=== PATIENT | male | born 1960 | race Two or more races ===

== ENCOUNTER 2024-11-01 11:31 | Emergency (ER) | payer OTHER, SELFPAY ==
--- NOTE | 2024-11-01 | ECG_ITS ---
Test Reason : chest pain Blood Pressure : */* mmHG Vent. Rate : 100 BPM Atrial Rate : 100 BPM P-R Int : 164 ms QRS Dur : 158 ms QT Int : 416 ms P-R-T Axes : 73 246 80 degrees QTcB Int : 536 ms Atrial-sensed ventricular-paced rhythm Biventricular pacemaker detected Abnormal ECG No previous ECGs available Referred By: Generic ED Physician Electronically Signed By: Hussein White
--- NOTE | ~2024-11-01 | XR_ITS ---
EXAMINATION: XR CHEST CLINICAL INFORMATION: cp COMPARISON: None available. TECHNIQUE: Frontal view of the chest was obtained. FINDINGS: The lungs are well-expanded and clear acute process. The heart size and pulmonary vascularity is normal. There are pacer electrodes in right atrium and right ventricle. There is mild spondylosis dorsal spine. No aggressive lytic or sclerotic process seen. XR/XR chest 1V IMPRESSION: No acute cardiopulmonary process seen.. Electronically signed by: Vignesh Cisneros MD 11/01/2024 01:33 PM EDT RP
--- NOTE | ~2024-11-01 | CT_ITS ---
EXAMINATION: CT ABDOMEN AND PELVIS WITHOUT CONTRAST CLINICAL INFORMATION: Nausea and vomiting. COMPARISON: June 22, 2011 is not available on PACS. TECHNIQUE: Multidetector volumetric imaging was performed from the superior aspect of the liver through the pubic symphysis. Sagittal and coronal reformatted images were obtained on the technologist's workstation. This CT examination was performed using dose optimization techniques as appropriate, variously including the following: *Automated exposure control *Adjustment of mA and/or kV according to patient size (this includes techniques or standardized protocols for targeted exams where dose is matched to indication/reason for exam; i.e. extremities or head) *Use of iterative reconstruction technique. DLP: 528 mGy centimeter. FINDINGS: Inadequate evaluation of the intra-abdominal organs and vascular structures due to lack of IV contrast. LUNG BASES: No acute airspace disease. Electrode leads in the right heart chambers and coronary venous sinus. LIVER, GALLBLADDER, AND BILIARY TREE: Liver measures 15 cm. No intrahepatic biliary ductal dilatation. No pericholecystic fluid collection or gallbladder wall thickening. No extrahepatic biliary ductal dilatation. PANCREAS: No peripancreatic fluid collection. No main pancreatic ductal dilatation. SPLEEN: 8 cm. ADRENAL GLANDS: No nodular lesions. KIDNEYS AND URETERS: No gross hydronephrosis or nephrolithiasis. Vascular calcifications in the left renal hilum. BLADDER: Fluid-filled. GASTROINTESTINAL TRACT: No intestinal obstruction pattern. Appendix is normal. No gross wall thickening. No pneumatosis intestinalis. Stool within the large intestine. No pneumoperitoneum. No ascites. ABDOMINAL WALL: Diastases abdominal rectus muscles. There is an irregular soft tissue fullness in the left inguinal canal probably related to prior surgical procedure.. LYMPH NODES: Nonspecific mildly prominent in the mesenteric and retroperitoneum. VASCULAR: Mixed plaques throughout the abdominal aorta wall and iliac arteries origin of the mesenteric arteries and main renal arteries. No gross aneurysm in the abdominal aorta.. Calcified plaques in the thoracic aorta. PELVIC VISCERA: Inadequate evaluation. No gross enlargement. OSSEOUS STRUCTURES: Syndesmophyte formation throughout the thoracic spine and upper lumbar spine. Facet joint hypertrophy at L4-5 and L5-S1. No gross malalignment. No acute cortical disruption. Syndesmophyte formation with the incomplete ankylosis at the sacroiliac joints. CT/CT abdomen pelvis wo IV con IMPRESSION: No intestinal obstruction pattern. No pneumoperitoneum. No ascites. Atherosclerosis disease. Multilevel thoracolumbar spondylosis. Fleischner guidelines were followed. Electronically signed by: David Benjamin MD 11/01/2024 03:07 PM EDT RP
[2024-11-01 11:43] VITALS: BP 160/100; BP 165/96; PULSE 80; PULSE 98; RESP 16; O2SAT 97; O2SAT 98; BMI 25.1
[2024-11-01 12:06] LABS: MANUAL DIFF FLAG NO
[2024-11-01 12:11] LABS: Basophils Percent Auto 0.3 % (0-2); Eosinophils Absolute Auto 0.1 X10*3/uL (0.0-0.4); Eosinophils Percent Auto 0.6 % (0-4); Hematocrit 46.8 % (42.0-52.0); Hemoglobin 15.9 g/dl (14.0-18.0); Imm Gran Abs Auto 0.04 X10*3/uL (0.00-0.03); Imm Gran Pct Auto 0.3 % (0.0-0.4); Lymphocytes Absolute Auto 1.4 X10*3/uL (1.2-4.9); Lymphocytes Percent Auto 12.1 % (20-40); Mean Corpuscular Hemoglobin 30.9 pg (27.0-33.0); Mean Corpuscular Volume 91.1 fL (80.0-98.0); Mean Platelet Volume 9.9 fL (9.4-12.4); Monocytes Percent Auto 8.1 % (2-11); Neutrophils Absolute Auto 9.2 x10*3/uL (2.0-8.3); Neutrophils Percent Auto 78.6 % (45-73); Platelet Count 183 X10*3/uL (160-400); Red Blood Count 5.14 X10*6/uL (4.60-5.80); White Blood Count 11.7 X10*3/uL (4.8-10.8)
[2024-11-01 12:25] LABS: Alanine Aminotransferase 14 U/L (0-40); Albumin Level 4.3 g/dL (3.5-5.0); Alkaline Phosphatase 61 U/L (39-117); Anion Gap 12 (12-20); Aspartate Amino Transferase 21 U/L (5-37); Bilirubin Total 1.1 mg/dL (0.0-1.0); Blood Urea Nitrogen 19 mg/dL (9-16); Calcium 9.4 mg/dL (8.4-10.2); Carbon Dioxide 26 mmol/L (22-29); Chloride 108 mmol/L (96-108); Creatinine Clr Calc Pharmacy 89.4; Estimated Glomerular Filt Rate > 60; Glucose Random 178 mg/dL (60-115); Sodium 142 mmol/L (135-145); Total Protein 7.6 g/dL (6.5-8.0)
[2024-11-01 12:27] LABS: Troponin-I High Sensitivity 8.7 ng/L (<3.5-35.0)
--- NOTE | 2024-11-01 12:51 | ED.CHESTPAIN ---
HPI - Chest Pain General Chief Complaint: Chest Pain Stated Complaint: CP,NAUSEA,VOMITING X1W,FROM WALK IN PER EMS Time Seen by Provider: 11/01/24 11:57 History of Present Illness HPI narrative: patient is a 64-year-old male presented today with having chest pain. Patient reports chest pain lasts for maybe 1-2 seconds usually with walking. There is no diaphoresis associated with the pain. Mild shortness of breath when he walks. Patient denies any fever chills no cough no congestion. Claims he is vaccinated. Has a history of congestive heart failure with a low EF about like 15-30%. Status post AICD placement. History of diabetes, hypertension, high cholesterol, ex-smoker previous history of polysubstance abuse. Related Data Allergies Allergy/AdvReac Type Severity Reaction Status Date / Time From Tuberculin PPD Meagan Test Allergy Unknown RASH, Uncoded 11/01/24 11:47 SWELLING OF ARM Review of Systems Review of Systems: positive chest pain Yes all other systems are reviewed and are negative PMFSH Past Medical History Attestation statement: The following information was validated with the patient. Social History Social History Smoked in Last 30 Days: Yes Use of substances other than those prescribed or required for medical reasons: No Advance Directives: No Advance Directives Information Provided: Yes Do you have a plan to hurt others: No Plan Physical Exam Vital Signs: Vital Signs: Last Vital Signs Temp 98.0 F 11/01/24 13:05 Pulse 100 11/01/24 13:05 Resp 17 11/01/24 13:05 BP 161/89 H 11/01/24 13:05 Pulse Ox 96 11/01/24 13:05 O2 Del Method Room Air 11/01/24 13:05 BMI result Body Mass Index 25.1 Appearance: Alert. Oriented X3. No acute distress. Eyes: Pupils equal, round and reactive to light. ENT: Pharynx normal. Neck: Normal inspection. Neck supple. No lymph nodes noted. No crepitus CVS: Normal heart rate and rhythm. Pulses normal. Normal S1 and S2 Respiratory: No respiratory distress. Breath sounds normal. No Wheezing. No rales Abdomen: Soft and nontender. No rigidity. No distention. good BS x4 Skin: Skin warm and dry. Normal skin color. Normal skin turgor. Extremities: No lower extremity edema. Neurovascular intact to all extremities. No Lacerations. No Rash Neuro: Oriented X 3. No motor deficit. No sensory deficit. Moving all extermities. No slurred speech Medical Decision Making Medical Decision Making [facility] Narrative: My interpretation patient's EKG showed a paced rhythm. Heart rate is about 100. Patient has chest pain that is atypical but has significant risk factors for CAD. Patient has a history of cardiomyopathy status post AICD multiple risk factors. Will get 2 sets of enzymes 1st set of troponin was negative. Will monitor carefully. In no acute distress. Patient's AICD is from [employer]. Will interrogate. Patient's defibrillator interrogated. I reviewed patient's [employer] report it was grossly negative. Patient chest pain lasts for 1-2 seconds. Two sets of troponins are negative. He is otherwise well. He had nonspecific nausea we did a CT scan of the abdomen per radiology's reading was grossly negative there is no obstruction no abscess no perforation. Will discharge patient home. Will refer patient to cardiology for outpatient further workup of his nonspecific chest pain given his multitude of risk factors. Currently in stable condition. Differential Diagnosis Differential Diagnoses: The differential diagnosis associated with the presentation includes Admission/Observation Consideration of admission/observation: Escalation of care including admission/observation considered Considered admission given patient's multitude of risk factor and having a pacemaker bed pain is so atypical felt patient unlikely to have ACS will discharge home Consult Healthcare Provider Management of the patient was discussed with: Assistant Plant Controller ( cardiology okay with following up patient on an outpatient basis) Lab Data [facility] Lab Attestation statement: I reviewed the patient's lab results. 11/01/24 12:00 11/01/24 12:00 Labs: Lab Results 11/01/24 11/01/24 Range/Units 12:00 13:18 WBC 11.7 H (4.8-10.8) X10*3/uL RBC 5.14 (4.60-5.80) X10*6/uL Hgb 15.9 (14.0-18.0) g/dl Hct 46.8 (42.0-52.0) % MCV 91.1 (80.0-98.0) fL MCH 30.9 (27.0-33.0) pg MCHC 34.0 (31.0-36.0) g/dl RDW 12.0 (11.0-16.0) % Plt Count 183 (160-400) X10*3/uL MPV 9.9 (9.4-12.4) fL Immature Gran % (Auto) 0.3 (0.0-0.4) % Neut % (Auto) 78.6 H (45-73) % Lymph % (Auto) 12.1 L (20-40) % [place] % (Auto) 8.1 (2-11) % Eos % (Auto) 0.6 (0-4) % Baso % (Auto) 0.3 (0-2) % Lymph # (Auto) 1.4 (1.2-4.9) X10*3/uL [place] # (Auto) 1.0 (0.1-1.2) X10*3/uL Eos # (Auto) 0.1 (0.0-0.4) X10*3/uL Baso # (Auto) 0.0 (0.0-0.2) X10*3/uL Abs Immat Gran (auto) 0.04 H (0.00-0.03) X10*3/uL Absolute Neuts (auto) 9.2 H (2.0-8.3) x10*3/uL Absolute Nucleated RBC 0.000 (0.0-0.012) X10*3/uL Nucleated RBC % (auto) 0.0 (0.0-0.2) /100WBC Sodium 142 (135-145) mmol/L Potassium 4.0 (3.3-5.1) mmol/L Chloride 108 (96-108) mmol/L Carbon Dioxide 26 (22-29) mmol/L Anion Gap 12 (12-20) BUN 19 H (9-16) mg/dL Creatinine 0.90 (0.5-1.4) mg/dL Estim Creat Clear Calc 89.4 Estimated GFR > 60 Random Glucose 178 H (60-115) mg/dL Calcium 9.4 (8.4-10.2) mg/dL Total Bilirubin 1.1 H (0.0-1.0) mg/dL AST 21 (5-37) U/L ALT 14 (0-40) U/L Alkaline Phosphatase 61 (39-117) U/L Troponin I High Sens 8.7 6.5 (<3.5-35.0) ng/L Total Protein 7.6 (6.5-8.0) g/dL Albumin 4.3 (3.5-5.0) g/dL Independent Interpretation I performed an independent interpretation of an: EKG (paced) Radiology Impression Discussion of test interpretation with radiology: I have reviewed the radiologist's reading. External Record Review External record reviewed: Outpatient record Chronic Conditions Patient?s care impacted by: Diabetes and Hypertension Discharge Plan Discharge Clinical Impression: Chest pain Patient Disposition: Home, Self-Care Instructions: Chest Pain (ED) Referrals: Hussein White MD [Physician] - 11/05/24 Print Language: Japanese
[2024-11-01 13:05] VITALS: BP 161/89; PULSE 100; RESP 17; TEMP 36.7; O2SAT 96
[2024-11-01 13:52] LABS: Troponin-I High Sensitivity 6.5 ng/L (<3.5-35.0)
--- OUTSIDE RECORDS SUMMARY | 2024-11-01 14:49 | XMS_ITS | Clinical Summary ---
Author Organization [employer] Address [address] [facility] [address] [place] [address] Care Team Providers Care Lpta Name Role Phone Unavailable Primary Care Provider Unavailabl e Encounters Date Type Department Care Team Description 11/01/2024 Telephone [facility] [address] [place] [address] Carlotta Baxter RN Nurse Triage 08/10/2024 Telephone [facility] [address] [place] [address] Trish Sewell ANP nail artist request from Last 3 Months Social History Tobacco Use Types Packs/Day Years Used Date Smoking Tobacco: Never Assessed Sex and Gender Information Value Date Recorded Sex Assigned at Male 05/24/2022 10:21 AM EDT Legal Sex Male 10:21 AM EDT Gender Identity Male 08/10/2024 9:17 AM EST Sexual Orientation Straight 08/10/2024 9: 17 AM EST Plan of Treatment Health Maintenance Due Date Last Done Comments CT Colonography 1961 Colonoscopy 1961 Colorectal Cancer Screening 1961 Depression Screening 1961 FIT DNA/Cologuard 1961 FIT 1961 FOBT 1961 HIV Screening 1961 Lipid Panel 1961 SDOH Screening 1961 Sigmoidoscopy 1961 Alcohol/Substance Use Screening 1973 Tobacco Screening 1973 Hepatitis C Screening 1979 DTaP/Tdap/Td Vaccines (1 - Tdap) 1980 Pneumococcal Vaccine: 50+ Ye ars (1 of 1 - PCV) 2011 Zoster Vaccines (1 of 2) 2011 COVID-19 Vaccine ( - 2023-2 5 season) 2024 Influenza Vaccine (#1) 2024 RSV Patients and Pa tients Aged 60 years or older (1 - 1-dose 75+ series) 2036 HIB Vaccines Aged Out No longer eligi ble based on patient's age to complete this topic HPV Vaccines Aged Out No longer eligi ble based on patient's age to complete this topic Hepatitis A Vaccines Aged Out No long er eligible based on patient's age to complete this topic Hepatitis B Vaccines Aged Out No long er eligible based on patient's age to complete this topic IPV Vaccines Aged Out No longer eligi ble based on patient's age to complete this topic Meningococcal Vaccine Aged Out No kimber magda eligible based on patient's age to complete this topic RSV under 20 months Aged Out No longe r eligible based on patient's age to complete this topic Rotavirus Vaccines Aged Out No longer eligible based on patient's age to complete this topic Insurance < 65 [place] [id number]
--- OUTSIDE RECORDS SUMMARY | 2024-11-01 14:49 | XMS_ITS | Continuity of Care Document ---
Author Organization [facility] Address [address] [place] [address] Phone Care Team Providers Care Spray Pilot Name Role Phone Kat Davis MD Unavailable Unavailabl e Allergies, Adverse Reactions, Alerts Substance Reaction Status Criticality No Known allergies Medications Medication Instructions Dosage Effective Dates (start - stop) Status Comments Soma 350 mg Tab Take 1 tablet by reyna th 3 times daily. - Active Celexa 20 mg Tab Take 1 tablet by reyna th daily in the morning - Active ibuprofen 800 mg Tab Take 1 tablet by mo uth 3 times daily with food. - Active Procedures Procedure Date Office/outpatient visit,est, [...] Diagnoses Date Provider Office/outpat ient visit,est, mod [facility], [address] [place] [address], [address], tel:[phone] [place] [facility] abd pain (chief complaint) HEPATITIS C CARRIERHEPATITIS C CARRIERABDMNAL PAIN RT UPR QUADBACKACHE NOS Collins- 1-[address] 7 Ryan Stephens. [address], [id number] [address] [place] [address], [address], [place]. tel:[phone] [facility], [address] [facility], [place], [address], [place] tel:[phone] 700 [facility] Gerard B body ache (chief complaint)a bdominal discomfort (chief complaint) Smoker, Current,COCAINE DEPEND-REMISSCANNABIS DEPEND-CONTINDEPRESSIV E DISORDER NECNECK PAIN - CERVICALGIANECK PAIN - CERVICALGIADEPRESSIVE DISORDER NECABDMNAL PAIN RT LWR QUAD 7 [address]anes[address] Kat. [address], [id number] [address] [place] [address], [address], [place]. tel:[phone] Family History Family Member Type Diagnosis Age At Onset Mother Problem (finding) Heart disease (Cause Of ) Father Problem (finding) Alive and well Mother Problem (finding) Payers Payer name Insurance type Covered libertarian ID Authoriza tion(s) No Information Social History Type Description Quantity Date Captured Comments Alcohol Use Details beer & liquor Caffeine Use Details Coffee 1 cup per day Tobacco Use Status Smoking Status No Information Sex Male Vital Signs Date / Time: Height Weight BMI Pulse Rate Blood Pressure Temperature Respiratory Rate Body Surface Area Head Circumference Head Circ. Percentile Wt./Jasiel. Percentile BMI percentile Pulse Ox Inhaled Ox [...]
--- OUTSIDE RECORDS SUMMARY | 2024-11-01 14:49 | XMS_ITS | Encounter Summary ---
Author Organization [employer] Address [address] [facility] [address] [place] [address] Care Team Providers Care Sports Health [employer] Membership Advisors Name Role Phone Unavailable Primary Care Provider Unavailabl e Reason for Visit * Reason Onset Date Comments Nurse Triage 11/01/2024 Encounter Details Date Type Department Care Team (Late st Contact Info) Description 11/01/2024 Telephone [facility] [address] [place] [address] Carlotta Baxter RN Nurse Triage Social History Tobacco Use Types Packs/Day Years Used Date Smoking Tobacco: Never Assessed Sex and Gender Information Value Date Recorded Sex Assigned at Male 05/24/2022 10:21 AM EDT Legal Sex Male 10:21 AM EDT Gender Identity Male 08/10/2024 9:17 AM EST Sexual Orientation Straight 08/10/2024 9: 17 AM EST documented as of this encounter Miscellaneous Notes * Telephone Encounter - Carlotta Baxter RN - 11/01/2024 11:21 AM EDT Patient presented to [facility] [place] reporting N/V, chest pain, and palpitations. He reports N/V x 1 week. Chest pain/ palpitations new this morning. Not a patient of [facility], however, requesting to be added to new patient list. New to area. EMS called for ambulance for patient to be transported to hospital. Patient brought back to triage room. Patient actively dry heaving and holding chest. This RN asked patient if he has a cardiac PMH. He reports he has a pacemaker and something else is he is unsure of. Confirms he is also diabetic. He has not eaten yet today d/t N/V. SpO2 95 % on room air, HR 102, BP 152/87, RR 20 EMS arrival at 11:10 AM. Patient to be transported to either [facility] or [facility] pending ambulance telemetry. documented in this encounter Plan of Treatment Not on file documented as of this encounter Visit Diagnoses Not on filedocumented in this encounter
== END 2024-11-01 17:44 | disposition home or self-care (01) ==
PROVIDERS: Emergency Provider Emergency Medicine Emergency Medical Services; PCP Internal Medicine
DX: R07.89 Other chest pain (principal); R06.02 Shortness of breath; R11.2 Nausea with vomiting, unspecified; R10.2 Pelvic and perineal pain; Z95.810 Presence of automatic (implantable) cardiac defibrillator
CPT/HCPCS: 36415; 71045; 74176; 80053; 84484; 85025; 93005; 99284

== ENCOUNTER → 2024-11-01 11:51 | Outpatient (BNV) | payer OTHER, SELFPAY | PROVIDERS: Emergency Provider Emergency Medicine Emergency Medical Services; PCP Internal Medicine; Visit Provider Internal Medicine Cardiovascular Disease | DX: R94.31 Abnormal electrocardiogram [ECG] [EKG] (principal); Z95.0 Presence of cardiac pacemaker | CPT/HCPCS: 93010 ==

== ENCOUNTER → 2024-11-01 13:16 | Outpatient (BNV) | payer OTHER, SELFPAY | PROVIDERS: Emergency Provider Emergency Medicine Emergency Medical Services; PCP Internal Medicine; Visit Provider Radiology Diagnostic Radiology | DX: R07.9 Chest pain, unspecified (principal); R11.2 Nausea with vomiting, unspecified | CPT/HCPCS: 71045; 74176 ==

== ENCOUNTER 2024-12-07 10:21 | Outpatient (REF) | payer OTHER, SELFPAY ==
--- OUTSIDE RECORDS SUMMARY | 2024-12-07 10:41 | XMS_ITS | Clinical Summary ---
Author Organization [employer] Address [address] [facility] 7t [place] [address] Care Team Providers Care Annual Giving Officer Name Role Phone Eboni Posey MD Primary Care Provider [phone] Allergies Active Allergy Reactions Criticality Noted Date Comments Tuberculin, Ppd 12/07/2024 Medications Aspirin Low Dose 81 MG EC tablet TAKE 1 TABLET BY MOUTH DAILY DO NOT CRUSH OR CHEW 10/16/2024 Active atorvastatin (Lipitor) 80 MG tablet Take 1 tablet by mouth. 06/24/2023 Active carvedilol (Coreg) 25 MG tablet Take 25 mg by mouth. 09/19/2024 Active Jardiance 25 MG Take 1 tablet by mouth. 09/19/2024 Active Entresto 97-103 MG tablet TOME 1 TABLETA POR V A ORAL DOS VECES AL D A Active Rybelsus 7 MG tablet Take 1 tablet by mouth Once per day. 07/04/2024 Active spironolactone (Aldactone) 25 MG tablet Take 1 tablet by mouth Once per day. 09/19/2024 Active Active Problems Problem Noted Date Diagnosed Date Chronic right-sided HF (heart failure) Constipation 12/07/2024 Diarrhea 12/07/2024 History of kidney stones 12/07/2024 History of viral infection 12/07/2024 Hx of smoking 12/07/2024 Hypertension 12/07/2024 Left bundle branch block (LBBB) 12/07/2024 Nonischemic cardiomyopathy 12/07/2024 Paranoid delusion 12/07/2024 Sinus tachycardia 12/07/2024 Type 2 diabetes mellitus wit hout complication, without long-term current use of insulin 12/07/2024 Encounters Date Type Department Care Team Description 12/07/2024 9:00 AM EDT Office Visit [facility] [address] [place] [phone] Eboni Posey MD Type 2 diabetes mellitus without complication, without long-term current use of insulin ([facility]) (Primary Dx); Dietary counseling; Exercise counseling; Overweight; Screening for prostate cancer; Nonischemic cardiomyopathy (CMS/HCC); Chronic right-sided HF (heart failure) (CMS/HCC); Screen for colon cancer; Deep vein thrombosis (DVT) of left upper extremity, unspecified chronicity, unspecified vein (CMS/HCC) 12/07/2024 Travel 12/06/2024 Telephone [facility] [address] [place] [phone] Eboni Posey MD chart prep 11/29/2024 Patient Outreach [address] [address] Eboni Posey MD Pre-visit Planning ((Unable to reach for PVP screening, LVM)) 11/01/2024 Telephone [facility] [address] [place] [phone] Carlotta Baxter RN Nurse Triage from Last 3 Months Immunizations Immunization Administration Dates Next Due Influenza, IIV3, injectable 05/08/2023,0 04/20/2021,04/18/2018,07/08,04/19/2013,04/03/2012 Influenza, seasonal, injecta ble, preservative free 08/28/2024 Pfizer Covid-19 Vaccine 12+ Bivalent 04/09/2022 Pneumococcal Conjugate PCV 20 05/08/2023 Pneumococcal Polysaccharide PPSV23 07/08/2017 RSV Bivalent 08/28/2024 Smallpox Mpox, Live Attenuat ed, Preservative Free 07/09/2022,06/11/2022 Tdap 10/28/2011 Zoster, Recombinant 01/01/2022,11/03/2021 Social History Tobacco Use Types Packs/Day Years Used Date Smoking Tobacco: Never Smokeless Tobacco: Never Tobacco Cessation:Counseling Given: Not Answered Depression Answer Date Recorded Patient Health Questionnaire-9 Score 8 12/07/2024 Patient Health Questionnaire-9 Score 8 12/07/2024 Last PHQ-9: Questionnaire Data Not on file 0 12/07/2024 Housing Stability Answer Date Recorded What is your housing situation today? I have joanie cavazos 12/07/[address] you li ve. Do you have problems with any of the following? None of the above 12/07/2024 Food Insecurity Answer Date Recorded Within the past 12 months, y ou worried that your food would run out before you got money to buy more: Never True 12/07/2024 Within the past 12 months,th e food you bought just didn't last and you didn't have enough money to get more: Never True Transportation Answer Date Recorded In the past 12 months, has l ack of transportation kept you from medical appts, meetings, work or from getting things needed for daily living? No 12/07/2024 Utilities Answer Date Recorded In the past 12 months, has t he electric, gas, oil or water company threatened to shut off services in your home? No 12/07/2024 Depression Answer Date Recorded Patient Health Questionnaire-2 Score 2 12/07/2024 Internet Access Answer Date Recorded Internet Access Q1 Yes 12/07/2024 Internet Access Q2 Not on file 12/07/2024 Sex and Gender Information Value Date Recorded Sex Assigned at Male 05/24/2022 10:21 AM EDT Legal Sex Male 10:21 AM EDT Gender Identity Male 08/10/2024 9:17 AM EST Sexual Orientation Straight 08/10/2024 9: 17 AM EST Last Filed Vital Signs Vital Sign Reading Time Taken Comments Blood Pressure 108/72 12/07/2024 8:51 AM EDT Pulse 101 12/07/2024 8:51 AM EDT Temperature 36.3 ??C (97.4 ??F) 12/07/2024 8:51 AM ED T Respiratory Rate 20 12/07/2024 8:51 AM EDT Oxygen Saturation 97% 12/07/2024 8:51 AM EDT Inhaled Oxygen Concentration - - Weight 85.9 kg (189 lb 6.4 oz) 12/07/2024 8:51 A M EDT Height 180.3 cm (5' 11 ) 12/07/2024 8:51 AM EDT Body Mass Index 26.42 12/07/2024 8:51 AM EDT Plan of Treatment Health Maintenance Due Date Last Done Comments CT Colonography 1961 Colonoscopy 1961 Colorectal Cancer Screening 1961 Diabetes: Hemoglobin A1C 1961 FIT DNA/Cologuard 1961 FIT 1961 FOBT 1961 HIV Screening 1961 Lipid Panel 1961 Sigmoidoscopy 1961 Diabetes: Foot Exam 1971 Eye Exam 1971 Hepatitis C Screening 1979 Diabetes: Urine Protein Screening 1980 DTaP/Tdap/Td Vaccines (2 - Td or Tdap) 10/27/2021 10/28/2011 COVID-19 Vaccine ( season) 2024 05/08/2023, 04/09/2022, 11/02/2021, Additional history exists Alcohol/Substance Use Screening 12/07/2025 12/07/2024 Depression Screening 12/07/2025 12/07/2024, 12/08/19 SDOH Screening 12/07/2025 12/07/2024 Tobacco Screening 12/07/2025 12/07/2024 Zoster Vaccines Completed 01/01/2022, 11/03/2021 Pneumococcal Vaccine: 50+ Years Completed 05/08/2023, 07/08/2017 Influenza Vaccine Completed 08/28/2024, , 04/20/2021, Additional history exists RSV Patients and Patients Aged 60 years or older Completed 08/28/2024 HIB Vaccines Aged Out No longer eligi [...] patient's age to complete this topic Meningococcal B Vaccine Aged Out No l onger eligible based on patient's age to complete this topic Meningococcal Vaccine Aged Out No kimber magda eligible based on patient's age to complete this topic RSV under 20 months Aged Out No longe r eligible based on patient's age to complete this topic Rotavirus Vaccines Aged Out No longer eligible based on patient's age to complete this topic Insurance [employer]ARE < 65 [place] [id number] Care Teams Annual Giving Officer Relationship Specialty Start Date End Date Eboni Posey MD [address] [place] [phone] PCP - General Family Medicine 12/07/24
--- OUTSIDE RECORDS SUMMARY | 2024-12-07 10:41 | XMS_ITS | Continuity of Care Document ---
Author Organization [facility] Address [address] [place] [address] Phone Care Team Providers Care Hat And Cap Opener Name Role Phone Kat Davis MD Unavailable [...] Diagnoses Date Provider Office/outpat ient visit,est, mod [facility], [address] [place] [address], [id number], tel:[phone] [place] [facility] abd pain (chief complaint) HEPATITIS C CARRIERHEPATITIS C CARRIERABDMNAL PAIN RT UPR QUADBACKACHE NOS Collins- 1-200 [address] Ryan Stephens. [address], [id number] [address] [place] [address], [address], [place]. tel:[phone] [facility], [address] [facility], [place], [address], [place] tel:[phone] [facility] Gerard B body ache (chief complaint)a bdominal discomfort (chief complaint) Smoker, Current,COCAINE DEPEND-REMISSCANNABIS DEPEND-CONTINDEPRESSIV E DISORDER NECNECK PAIN - CERVICALGIANECK PAIN - CERVICALGIADEPRESSIVE DISORDER NECABDMNAL PAIN RT LWR QUAD [address] Kat. [address], [id number] [address] [place] [address], [address], [place]. tel:[phone] Family History Family Member Type Diagnosis Age At Onset Mother Problem (finding) Heart disease (Cause Of ) Father Problem (finding) Alive and well Mother Problem (finding) Payers Payer name Insurance type Covered democrat ID Authoriza tion(s) No Information Social History [...] Information Instructions Date Instruction Additional Infor mation Prescribe medications Related to HEPATITIS C CARRIER Order labs/studies Related to HE PATITIS C CARRIER Order consults Related to NECK PAIN - CERVICALGIA Prescribe medications Related to NECK PAIN - CERVICALGIA Order labs/studies Related to NE CK PAIN - CERVICALGIA Assessments Type Assessment Date No Information
--- OUTSIDE RECORDS SUMMARY | 2024-12-07 10:41 | XMS_ITS | Encounter Summary ---
Author Organization [employer] Address [address] [facility] 7t [place] [address] Care Team Providers Care Lapper Name Role Phone Eboni Posey MD Primary Care Provider [phone] Reason for Referral * Consultation (Routine) - Pending Review Specialty Diagnoses / Procedures Referred By Wallace villarreal Referred To Contact Vascular Surgery Diagnoses Deep vein thrombosis (DVT) of left upper extremity, unspecified chronicity, unspecified vein (CMS/HCC) Eboni Posey MD [address] [place] [address] Phone: tel: fax: [address] Phone: tel: fax: Referral ID Status Reason Start Date Expiration Date Visits Requested Visits Authorized [id number] Pending Review Specialty Services Required 12/07/2024 12/07/2025 1 1 * Consultation (Routine) - Pending Review Specialty Diagnoses / Procedures Referred By Wallace villarreal Referred To Contact Gastroenterology Diagnoses Screen for colon cancer Eboni Posey MD [address] [place] [address] Phone: tel: fax: Referral ID Status Reason Start Date Expiration Date Visits Requested Visits Authorized [id number] Pending Review Specialty Services Required 12/07/2024 12/07/2025 1 1 * Consultation (Routine) - Pending Review Specialty Diagnoses / Procedures Referred By Wallace t Referred To Contact Cardiology Diagnoses Nonischemic cardiomyopathy (CMS/HCC) Chronic right-sided HF (heart failure) (CMS/HCC) Eboni Posey MD [address] [place] [address] Phone: tel: fax: [address] Phone: tel: fax: Referral ID Status Reason Start Date Expiration Date Visits Requested Visits Authorized [id number] Pending Review Specialty Services Required 12/07/2024 12/07/2025 1 1 Reason for Visit * Reason Comments Establish Care Encounter Details Date Type Department Care Team (Latest Contact Info) Description 12/07/2024 9:00 AM EDT Office Visit [facility] [address] [place] [address] Eboni Posey MD [address] [place] [address] Type 2 diabetes mellitus without complication, without long-term current use of insulin (CMS/HCC) (Primary Dx); Dietary counseling; Exercise counseling; Overweight; Screening for prostate cancer; Nonischemic cardiomyopathy (CMS/HCC); Chronic right-sided HF (heart failure) (CMS/HCC); Screen for colon cancer; Deep vein thrombosis (DVT) of left upper extremity, unspecified chronicity, unspecified vein (CMS/HCC) Social History Tobacco Use Types Packs/Day Years [...] AM EST documented as of this encounter Last Filed Vital Signs Vital Sign Reading [...] Mass Index 26.42 12/07/2024 8:51 AM EDT documented in this encounter Functional Status * Over the past 2 weeks, how often have you been bothered by any of the following problems? Question Answer Date of Assessment Author Patient Health Questionnaire-2 Score 2 12/07/2024 8:59 AM EDT Rosa Maria Royal MA * Little interest or pleasure in doing things Answer Date of Assessment Author Several days 12/07/2024 8:59 AM Rosa Maria Alamo MA * Feeling down, depressed, or hopeless Answer Date of Assessment Author Several days 12/07/2024 8:59 AM Rosa Maria Alamo MA * Trouble falling or staying asleep, or sleeping too much Answer Date of Assessment Author Several days 12/07/2024 8:59 AM Rosa Maria Alamo MA * Feeling tired or having little energy Answer Date of Assessment Author Several days 12/07/2024 8:59 AM EDT Rosa Maria Boyle MA * Poor appetite or overeating Answer Date of Assessment Author Several days 12/07/2024 8:59 AM Rosa Maria Alamo MA * Feeling bad about yourself - or that you are a failure or have let yourself or your family down Answer Date of Assessment Author Several days 12/07/2024 8:59 AM Rosa Maria Alamo MA * Trouble concentrating on things, such as reading the newspaper or watching television Answer Date of Assessment Author Several days 12/07/2024 8:59 AM Rosa Maria Alamo MA * Moving or speaking so slowly that other people could have noticed? Or the opposite - being so fidgety or restless that you have been moving around a lot more than usual. Answer Date of Assessment Author Several days 12/07/2024 8:59 AM Rosa Maria Alamo MA * Thoughts that you would be better off or hurting yourself in some way Answer Date of Assessment Author Not at all 12/07/2024 8:59 AM Rosa Maria Alamo MA * Patient Health Questionnaire-9 Score Answer Date of Assessment Author 8 12/07/2024 8:59 AM Rosa Maria Alamo MA * How difficult have these problems made it for you to do your work, take care of things at home, or get along with other people? Answer Date of Assessment Author Somewhat difficult 12/07/2024 8:59 AM DEBORAHT Rosa Maria Lion MA documented as of this encounter Progress Notes * Eboni Posey MD - 12/07/2024 9:00 AM EDT Subjective: Tulio Bergman is a 64 y.o. male who presents to the office for a transfer patient visit. Previous PCP [facility]. Interim history: Moved here recently Cardiology and vascular and GI Getting to appointments and shopping, needs help Current concerns: Getting medications refilled and moved to [facility] Having Problem List[1] Chronic right-sided HF (heart failure) (CMS/HCC) Constipation Diarrhea History of kidney stones History of viral infection Hx of smoking Hypertension Left bundle branch block (LBBB) Nonischemic cardiomyopathy (CMS/HCC) Paranoid delusion (CMS/HCC) Sinus tachycardia Type 2 diabetes mellitus without complication, without long-term current use of insulin (CMS/HCC) Surgical History[2] Family History[3] Social History Living situation: lives alone in one room 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 Respiratory: Negative. Cardiovascular: Negative. Gastrointestinal: Negative. Musculoskeletal: Negative. Skin: Negative. Visit Vitals BP 108/72 (BP Location: Left arm, Patient Position: Sitting, BP Cuff Size: Adult) Pulse 101 Temp 97.4 ??F (36.3 ??C) (Temporal) Resp 20 Ht 5' 11 (1.803 m) Wt 189 lb 6.4 oz (85.9 kg) SpO2 97% BMI 26.42 kg/m?? Smoking Status Never BSA 2.07 m?? Physical Exam Vitals and nursing note reviewed. Constitutional: Appearance: Normal appearance. He is normal weight. HENT: Head: Normocephalic and atraumatic. Cardiovascular: Rate and Rhythm: Normal rate and regular rhythm. Pulses: Normal pulses. Heart sounds: Normal heart sounds. Comments: Pacemaker in place, no tenderness around, L upper chest Does remote monitoring Pulmonary: Effort: Pulmonary effort is normal. Breath sounds: Normal breath sounds. Musculoskeletal: General: Normal range of motion. Cervical back: Normal range of motion and neck supple. Skin: General: Skin is warm and dry. Capillary Refill: Capillary refill takes less than 2 seconds. Neurological: General: No focal deficit present. Mental Status: He is alert and oriented to person, place, and time. Psychiatric: Mood and Affect: Mood normal. Behavior: Behavior normal. Problem List Items Addressed This Visit Chronic right-sided HF (heart failure) (CMS/HCC) Relevant Medications Aspirin Low Dose 81 MG EC tablet atorvastatin (Lipitor) 80 MG tablet carvedilol (Coreg) 25 MG tablet Jardiance 25 MG Entresto 97-103 MG tablet spironolactone (Aldactone) 25 MG tablet Other Relevant Orders Referral to Cardiology Nonischemic cardiomyopathy (CMS/HCC) Relevant Medications Aspirin Low Dose 81 MG EC tablet atorvastatin (Lipitor) 80 MG tablet carvedilol (Coreg) 25 MG tablet Jardiance 25 MG Entresto 97-103 MG tablet spironolactone (Aldactone) 25 MG tablet Other Relevant Orders Referral to Cardiology Type 2 diabetes mellitus without complication, without long-term current use of insulin (CMS/HCC) -Primary Relevant Medications atorvastatin (Lipitor) 80 MG tablet Jardiance 25 MG Entresto 97-103 MG tablet Rybelsus 7 MG tablet Other Relevant Orders Lipid Panel, Standard Hemoglobin A1c Albumin, Random Urine W/Creatinine Comprehensive Metabolic Panel Other Visit Diagnoses Dietary counseling Relevant Medications atorvastatin (Lipitor) 80 MG tablet Jardiance 25 MG Rybelsus 7 MG tablet Exercise counseling Relevant Medications atorvastatin (Lipitor) 80 MG tablet Jardiance 25 MG Rybelsus 7 MG tablet Overweight Relevant Medications atorvastatin (Lipitor) 80 MG tablet Jardiance 25 MG Rybelsus 7 MG tablet Other Relevant Orders Hepatitis C Antibody with Reflex to HCV, RNA, Quantitative, Real-Time PCR HIV-1/2 Antigen and Antibodies, Fourth Generation, with Reflexes Screening for prostate cancer Relevant Orders PSA,Total Screen for colon cancer Relevant Orders Referral to Gastroenterology Deep vein thrombosis (DVT) of left upper extremity, unspecified chronicity, unspecified vein (CMS/HCC) Relevant Medications Aspirin Low Dose 81 MG EC tablet Other Relevant Orders Referral to Vascular Surgery Routine Health Maintenance Optometry: has eye appointment January 08, 20[facility] at [facility] Dental: established with dental home No ASCVD risk: 64 y.o. male diabetic Lab Review: no lab studies available for review at time of visit COVID vaccination status: Outstanding IZ: (PCV20 - 19-65 with immunocompromising condition, tobacco use, diabetes, or >65 y/o) Shingrix (50 and over, 2 dose series, 2-6 months apart) Tdap: one dose after 19 y/o, then Td or Tdap booster every 10 years. Routine Cancer Screening Colon CA: routine screening starting at 45-75 years old per ACS -Colonoscopy every 10 years -CT colonography or flex sig every 5 years -Stool DNA test/Cologuard every 3 years -FIT annually Lung CA: Age 50-80 with 20-year pack history send for low-dose CT per USPSTF (order AAA screening with abd ultrasound x 1 in men aged 65-75 y/o who have ever smoked) PSA: shared decision making for routine screening starting at 50 y/o (40-45y/o w/ risk factors) Current Medications[5] ASA 81mg daily by mouth atorvastatin (Lipitor) 80 MG tablet Take 1 tablet by mouth. carvedilol (Coreg) 25 MG tablet Take 25 mg by mouth. Jardiance 25 MG Take 1 tablet by mouth. Rybelsus 7 MG tablet Take 1 tablet by mouth Once per day. spironolactone (Aldactone) 25 MG tablet Take 1 tablet by mouth Once per day. Entresto 97-103 MG tablet TOME 1 TABLETA POR V A ORAL DOS VECES AL D A Immunization History Administered Date(s) Administered Influenza, IIV3, injectable 04/03/2012, 04/19/2013, 07/08/2017, 04/18/2018, 04/20/2021, 05/08/2023 Influenza, seasonal, injectable, preservative free 08/28/2024 Pfizer Covid-19 Vaccine 12+ 11/05/2020, 11/26/2020, 04/08/2021, 05/08/2023 Pfizer Covid-19 Vaccine 12+ Bivalent 04/09/2022 Pfizer Covid-19 Vaccine 12+ andres-sucrose (Kim Cap) 11/02/2021 Pneumococcal Conjugate PCV 20 05/08/2023 Pneumococcal Polysaccharide PPSV23 07/08/2017 RSV Bivalent 08/28/2024 Smallpox Mpox, Live Attenuated, Preservative Free 06/11/2022, 07/09/2022 Tdap 10/28/2011 Zoster, Recombinant 11/03/2021, 01/01/2022 [1] Patient Active Problem List Diagnosis Chronic right-sided HF (heart failure) (CMS/HCC) Constipation Diarrhea History of kidney stones History of viral infection Hx of smoking Hypertension Left bundle branch block (LBBB) Nonischemic cardiomyopathy (CMS/HCC) Paranoid delusion (CMS/HCC) Sinus tachycardia Type 2 diabetes mellitus without complication, without long-term current use of insulin (CMS/HCC) [2] History reviewed. No pertinent surgical history. [3] No family history on file. [4] Allergies Allergen Reactions Tuberculin, Ppd [5] Current Outpatient Medications Medication Sig Dispense Refill Aspirin Low Dose 81 MG EC tablet TAKE 1 TABLET BY MOUTH DAILY DO NOT CRUSH OR CHEW atorvastatin (Lipitor) 80 MG tablet Take 1 tablet by mouth. carvedilol (Coreg) 25 MG tablet Take 25 mg by mouth. Jardiance 25 MG Take 1 tablet by mouth. Rybelsus 7 MG tablet Take 1 tablet by mouth Once per day. spironolactone (Aldactone) 25 MG tablet Take 1 tablet by mouth Once per day. Entresto 97-103 MG tablet TOME 1 TABLETA POR V A ORAL DOS VECES AL D A No current facility-administered medications for this visit. documented in this encounter Plan of Treatment Scheduled Orders Name Type Priority Associated Diagnoses Orde r Schedule Lipid Panel, Standard Lab Routine Type 2 diabetes mellitus without complication, without long-term current use of insulin ([facility]) Expected: 12/07/2024 (Approximate), Expires: 12/07/2025 Hemoglobin A1c Lab Routine Type 2 diabetes mellitus without complication, without long-term current use of insulin ([facility]/HCC) Expected: 12/07/2024 (Approximate), Expires: 12/07/2025 Albumin, Random Urine W/Creatinine Lab Routine Type 2 diabetes mellitus without complication, without long-term current use of insulin (CMS/HCC) Expected: 12/07/2024 (Approximate), Expires: 12/07/2025 Comprehensive Metabolic Panel Lab Routine Type 2 diabetes mellitus without complication, without long-term current use of insulin ([facility]/HCC) Expected: 12/07/2024 (Approximate), Expires: 12/07/2025 Hepatitis C Antibody with Reflex to HCV, RNA, Quantitative, Real-Time PCR Lab Routine Overweight Expected: 12/07/2024, Expires: 12/07/2025 HIV-1/2 Antigen and Antibodies, Fourth Generation, with Reflexes Lab Routine Overweight Expected: 12/07/2024 (Approximate), Expires: 12/07/2025 PSA,Total Lab Routine Screening for prostate cancer Expected: 12/07/2024, Expires: 12/07/2025 Scheduled Referrals Name Type Priority Associated Diagnoses Orde r Schedule Referral to Cardiology Outpatient Referral Routine Nonischemic cardiomyopathy (CMS/HCC) Chronic right-sided HF (heart failure) (CMS/HCC) Expected: 12/07/2024 (Approximate), Expires: 12/07/2025 Referral to Gastroenterology Outpatient Referral Routine Screen for colon cancer Expected: 12/07/2024 (Approximate), Expires: 12/07/2025 Referral to Vascular Surgery Outpatient Referral Routine Deep vein thrombosis (DVT) of left upper extremity, unspecified chronicity, unspecified vein (CMS/HCC) Expected: 12/07/2024 (Approximate), Expires: 12/07/2025 documented as of this encounter Visit Diagnoses Diagnosis Type 2 diabetes mellitus without complication, without long-term current use of insulin (CMS/HCC)- Primary Dietary counseling Dietary surveillance and counseling Exercise counseling Overweight Screening for prostate cancer Special screening for malignant neoplasm of prostate Nonischemic cardiomyopathy (CMS/HCC) Other primary cardiomyopathies Chronic right-sided HF (heart failure) (CMS/HCC) Congestive heart failure, unspecified Screen for colon cancer Special screening for malignant neoplasms, colon Deep vein thrombosis (DVT) of left upper extremity, unspecified chronicity, unspecified vein (CMS/HCC) documented in this encounter Additional Health Concerns Assessment Noted Time PHQ-9 Depression Total Score: 8 12/08/19 25 8:59 AM EDT documented as of this encounter Care Teams Lapper Relationship Specialty Start Date End Date Eboni Posey MD [address] [place] [id number] PCP - General Family Medicine 12/07/24 documented as of this encounter
--- OUTSIDE RECORDS SUMMARY | 2024-12-07 10:41 | XMS_ITS | Encounter Summary ---
Author Organization [employer] Address [address] [facility] 7t [place] [address] Care Team Providers Care Facility Examiner Name Role Phone Unavailable Primary Care Provider Unavailabl e Reason for Visit * Reason Onset Date Comments chart prep 12/06/2024 Encounter Details Date Type Department Care Team ([facility] st Contact Info) Description 12/06/2024 Telephone [facility] MEDICINE [address] [place], [place] [phone] Eboni Posey MD [address] [place], [place] [phone] chart prep Social History Tobacco Use Types Packs/Day Years Used Date Smoking Tobacco: Never Assessed Depression Answer Date Recorded Patient Health Questionnaire-9 [...] encounter Miscellaneous Notes * Telephone Encounter - Rosa Maria Royal MA - 12/06/2024 1:28 PM EDT Chart Prep Labs: not applicable Images: not applicable Referrals: not applicable Vaccines due: Covid, Flu, and Tdap Screenings: colonoscopy Overdue care gaps: SBIRT, SDOH, PHQ-9, KARLOS-7, Disability screen, and Tobacco documented in this encounter Plan of Treatment Not on file documented as of this encounter Visit Diagnoses Not on filedocumented in this encounter
--- OUTSIDE RECORDS SUMMARY | 2024-12-07 10:41 | XMS_ITS | Encounter Summary ---
Author Organization [employer] Address [address] [facility] 7[address] [place] [address] Care Team Providers Care Life Insurance Underwriter Name Role Phone Eboni Posey MD Primary Care Provider [phone] Encounter Details Date Type Department Care Team (Latest Contact Info) Description 12/07/2024 Travel Social History Tobacco Use Types Packs/Day Years Used Date Smoking Tobacco: Never Smokeless Tobacco: Never Depression Answer Date Recorded Patient Health Questionnaire-9 [...] AM EST documented as of this encounter Functional Status * Over the [...] AM EDT Rosa Maria Boyle MA * Feeling down, depressed, or hopeless Answer Date of Assessment Author Several days 12/07/2024 8:59 AM DEBORAHT Rosa Maria Boyle MA * Trouble falling or staying asleep, or sleeping too much Answer Date of Assessment Author Several days 12/07/2024 8:59 AM DEBORAHT Rosa Maria Boyle MA * Feeling tired or having little energy Answer Date of Assessment Author Several days 12/07/2024 8:59 AM DEBORAHT Rosa Maria Boyle MA * Poor appetite or overeating Answer Date of Assessment Author Several days 12/07/2024 8:59 AM DEBORAHT Rosa Maria Boyle MA * Feeling bad about yourself - or that you are a failure or have let yourself or your family down Answer Date of Assessment Author Several days 12/07/2024 8:59 AM Rosa Maria Alamo MA * Trouble concentrating on things, such as reading the newspaper or watching television Answer Date of Assessment Author Several days 12/07/2024 8:59 AM DEBORAHT Rosa Maria Boyle MA * Moving or speaking so slowly [...] Author Not at all 12/07/2024 8:59 AM EDT Rosa Maria Boyle MA * Patient Health Questionnaire-9 Score Answer Date of Assessment Author 8 12/07/2024 8:59 AM EDT Rosa Maria Boyle MA * How difficult have these problems made it for you to do your work, take care of things at home, or get along with other people? Answer Date of Assessment Author Somewhat difficult 12/07/2024 8:59 AM EDT Rosa Maria Lion MA documented as of this encounter Plan of Treatment Not on file documented as of this encounter Visit Diagnoses Not on filedocumented in this encounter Additional Health Concerns Assessment Noted Time PHQ-9 Depression Total Score: 8 12/08/19 8:59 AM EDT documented as of this encounter Care Teams Life Insurance Underwriter Relationship Specialty Start Date End Date Eboni Posey MD [address] [place] [address] PCP - General Family Medicine 12/07/24 documented as of this encounter
[2024-12-07 11:55] LABS: Alanine Aminotransferase 19 U/L (0-40); Albumin Level 4.5 g/dL (3.5-5.0); Alkaline Phosphatase 61 U/L (39-117); Anion Gap 12 (12-20); Aspartate Amino Transferase 28 U/L (5-37); Bilirubin Total 0.7 mg/dL (0.0-1.0); Blood Urea Nitrogen 21 mg/dL (9-16); Calcium 9.8 mg/dL (8.4-10.2); Carbon Dioxide 27 mmol/L (22-29); Chloride 104 mmol/L (96-108); Cholesterol 254 mg/dL (<200); Estimated Glomerular Filt Rate > 60; Glucose Random 154 mg/dL (60-115); HDL Cholesterol 46 mg/dL (>40); LDL Cholesterol Calculated 175 mg/dL (<100); Potassium 4.8 mmol/L (3.3-5.1); Sodium 138 mmol/L (135-145); Total Protein 8.2 g/dL (6.5-8.0); Triglycerides 167 mg/dL (<150)
[2024-12-07 12:08] LABS: Estimated Average Glucose 140 mg/dL; Hemoglobin A1C 197.4899 umol/L; Hemoglobin A1c % 6.5 % (<6.0); Total Hemoglobin (HGBA1C) 4155.7446 umol/L
[2024-12-07 12:23] LABS: Prostate Specific Antigen 0.77 ng/mL (<0.05-4.0)
[2024-12-07 12:24] LABS: Creatinine Urine 155.47 mg/dL; Microalbum/Creatinine Ratio Ur 29.5 ug/mg cr (<30)
[2024-12-07 12:34] LABS: HIV AB/AG Nonreactive (Nonreactive); HIV Num 1 0.06 S/CO (0.00-0.99); ~HepC Num1 13.52 S/CO (0.00-0.79); ~Hepatitis C Antibody Reactive (Nonreactive)
[2024-12-12 18:27] LABS: HCV Log PCR <1.18 NOT DETECTED Log IU/mL (NOT DETECTED); HepC Viral Load <15 NOT DETECTED IU/mL (NOT DETECTED)
== END 2024-12-07 10:22 | disposition home or self-care (01) ==
LOC: HO.HHCL 10:21
PROVIDERS: Visit Provider General Practice
DX: Z12.5 Encounter for screening for malignant neoplasm of prostate (principal); E66.3 Overweight; E11.9 Type 2 diabetes mellitus without complications
CPT/HCPCS: 36415; 80053; 80061; 82043; 82570; 83036; 84153; 86803; 87389; 87522

== ENCOUNTER 2025-05-07 09:34 | Outpatient (AMB) | payer OTHER, SELFPAY ==
--- OUTSIDE RECORDS SUMMARY | 2007-01-12 16:17 | XMS_ITS | Continuity of Care Document ---
Author Organization [facility] Address [address] [place] [address] Phone Care Team Providers Care Part Maker Name Role Phone Kat Davis MD Unavailable Unavailabl e Allergies, Adverse Reactions, Alerts Substance Reaction Status Criticality No Known allergies Medications Medication Instructions Dosage Effective Dates (start - stop) Status Comments Soma 350 mg Tab Take 1 tablet by reyna th 3 times daily. - Active ibuprofen 800 mg Tab Take 1 tablet by mo uth 3 times daily with food. - Active Celexa 20 mg Tab Take 1 tablet by reyna th daily in the morning - Active Procedures Procedure Date Office/outpatient visit,est, mod 2006 Advance Directives Directive Yes / No Effective Date File Name Resuscitation Not Answered N/A N/A Life Support Not Answered N/A N/A Intubation Not Answered N/A N/A Antibiotics Not Answered N/A N/A IV Fluid Support Not Answered N/A N/A Tube Feed Not Answered N/A N/A Other Directive N/A N/A WARNING:The information contained in this section is historical and is provided for information only and does not constitute a legal document or any assurance that the information is still accurate. Please verify the information with the holliday of the legal document before using it for clinical purposes. Encounters Encounter Description Practice Location Reason(s) For Visit Diagnoses Date Provider Office/outpat ient visit,est, mod [facility], [address] [place] [address], [id number], tel:[phone] [place] [facility] abd pain (chief complaint) HEPATITIS C CARRIERHEPATITIS C CARRIERABDMNAL PAIN RT UPR QUADBACKACHE NOS Collins- 1-[address] 7 Ryan Stephens. [address], [id number] [address] [place] [address], [address], [place]. tel:[phone] [facility], [address] [facility], [place], [address], [place] tel:[phone] [facility] Gerard B body ache (chief complaint)a bdominal discomfort (chief complaint) Smoker, Current,COCAINE DEPEND-REMISSCANNABIS DEPEND-CONTINDEPRESSIV E DISORDER NECNECK PAIN - CERVICALGIANECK PAIN - CERVICALGIADEPRESSIVE DISORDER NECABDMNAL PAIN RT LWR QUAD [address] Kat. [address], [id number] [address] [place] [address], [address], [place]. tel:[phone] Family History Family Member Type Diagnosis Age At Onset Mother Problem (finding) Heart disease (Cause Of ) Father Problem (finding) Alive and well Mother Problem (finding) Payers Payer name Insurance type Covered green party ID Authoriza tion(s) No Information Social History Type Description Quantity Date Captured Comments Alcohol Use Details beer & liquor Caffeine Use Details Coffee 1 cup per day Tobacco Use Status Smoking Status No Information Sex Male Vital Signs Date / Time: Height Weight BMI Pulse Rate Blood Pressure Temperature Respiratory Rate Body Surface Area Head Circumference Head Circ. Percentile Wt./Ajsiel. Percentile BMI percentile Pulse Ox Inhaled Ox 8:18 PM 220.00 lbs 97.00 F Chief Complaint And Reason For Visit From encounter dated '01/12/2007 20:17'. abd pain (chief complaint). Description: . states abd pain for 2 months, back pain, neck pain (for years), sometimes he feels cold (he wants to know why) History Of Present Illness Encounter Date Complaint History Of Prese nt Illness No Information Instructions Date Instruction Additional Infor mation Order labs/studies Related to HE PATITIS C CARRIER Prescribe medications Related to HEPATITIS C CARRIER Order labs/studies Related to NE CK PAIN - CERVICALGIA Prescribe medications Related to NECK PAIN - CERVICALGIA Order consults Related to NECK PAIN - CERVICALGIA Assessments Type Assessment Date No Information
--- NOTE | 2025-05-07 09:44 | MHC.OFFVIS ---
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 Patient is not sure why he is here. He states he had ulcers in his legs but that they are healed. States he had surgeries in his arms but not sure why. 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 He reports having a pacemaker and mentions fluid in his lungs, which may contribute to his symptoms. The patient denies any current problems with his arms, and physical examination reveals good peripheral pulses. Although he is a poor historian he reports that he underwent bilateral shoulder surgery several years ago. He now presents to us for vascular evaluation Review of Systems Const All systems reviewed & are unremarkable except as noted in HPI and below Reports no additional complaints ENT Reports Normal hearing present Card Denies chest pain, Denies chest pain at rest, Denies chest pain with activity and Denies pedal edema Resp Denies cough GI Denies abdominal pain Musc Denies abnormal gait, Denies muscle cramps and Denies radiating pain into limb Skin/Breast Denies skin ulcer and Denies wounds Neuro Reports Normal hearing present and Denies abnormal gait Psych Reports no additional complaints Physical Exam Const General: cooperative, healthy appearing and comfortable Orientation/consciousness: oriented to person, oriented to place and oriented to time HEENT Head: Yes normal to inspection Neck Neck: Yes normal visual inspection Carotids: no bruits Chest Chest palpation & inspection: normal inspection of the chest Resp Effort & Inspection: normal respiratory effort and able to speak in complete sentences Auscultation: clear to auscultation bilaterally, no crackles, no rales, no rhonchi and no wheezes Cardio Other: Palpable brachial radial ulnar pulses bilaterally Rate: regular rate Rhythm: regular rhythm Heart sounds: S1 normal heart sound present and S2 normal heart sound present Bruits: no carotid bruits Peripheral pulses: Peripheral pulses 2+ throughout GI Inspection: Yes normal to inspection Skin Wounds: no wounds Hair: normal Neuro General: oriented to person, oriented to place and oriented to time Cranial nerves: Yes CN's II-XII intact bilaterally and Yes Normal hearing present Cognition (Neuro): normal cognition Motor exam (neuro): 5/5 motor strength present throughout Extrem Other: venous exam: No significant superficial varicosities or spider telangiectasias, minimal edema General: No clubbing, No cyanosis and No edema Psych Appearance: grossly normal Mental Status: mental status grossly normal Speech and movement: Normal speech and movement present Assessment & Plan Assessment & Plan (1) Arm pain: Code(s): M79.603 - Pain in arm, unspecified Category: Medical Qualifiers: Laterality: bilateral Qualified Code(s): M79.601 - Pain in right arm; M79.602 - Pain in left arm Plan: In short patient appears to have no issues in the upper extremities at the current time. There is question of a DVT but unable to obtain images. At the current time arms appear to be functioning well. No follow-up required We will follow on an as-needed basis Coding Level of Care Code New Pt Level 4 (30339) Diagnoses Pain in both upper extremities M79.601; M79.602 Laterality: bilateral
--- OUTSIDE RECORDS SUMMARY | 2025-05-07 10:41 | XMS_ITS | Clinical Summary ---
Author Organization [email or web address] Address [address] [facility] 7t [place] [address] Care Team Providers Care Physical Therapy Supervisor Name Role Phone Eboni Posey MD Primary Care Provider [phone] Allergies Active Allergy Reactions Criticality Noted Date Comments Tuberculin, Ppd 12/07/2024 Medications Rybelsus 14 MG tabletIndicatio ns:Type 2 diabetes mellitus without complication, without long-term current use of insulin (HCC) Take 1 tablet (14 mg) by mouth before breakfast. 90 tablet 3 5 Active spironolactone (Aldactone) 25 MG tablet Take 1 tablet (25 mg) by mouth Once per day. 90 tablet 3 5 Active Jardiance 25 MG Take 1 tablet (25 mg) by mouth Once per day. 90 tablet 3 5 Active Entresto 97-103 MG tablet Take 1 tablet by mouth 2 times daily. 180 tablet 3 5 Active carvedilol (Coreg) 25 MG tablet Take 1 tablet (25 mg) by mouth with breakfast and with evening meal. 180 tablet 3 5 Active atorvastatin (Lipitor) 80 MG tablet Take 1 tablet (80 mg) by mouth Once per day. 90 tablet 3 5 Active Aspirin Low Dose 81 MG EC tablet Take 1 tablet (81 mg) by mouth Once per day. 90 tablet 3 5 Active Active Problems Problem Noted Date Diagnosed Date Chronic gastritis without bl eeding, unspecified gastritis type 03/08/2025 Gastroduodenitis 03/08/2025 Chronic right-sided HF (heart failure) Assessment & Plan (12/07/2024 1:04 PM EDT): Last EF in [facility] notes 26% (06/2023) that patient brings, but he also says he had recent Echo in [facility] system Will attempt to obtain [facility] records Also refer to cardiology for ongoing care and monitoring Constipation 12/07/2024 Diarrhea 12/07/2024 History of kidney stones 12/07/2024 Hx of smoking 12/07/2024 Hypertension 12/07/2024 Assessment & Plan (12/07/2024 1:02 PM EDT): At goal currently with Entresto Left bundle branch block (LBBB) 12/07/2024 Nonischemic cardiomyopathy ([facility]/HCC) 12/07/2024 Paranoid delusion ([facility]) 12/07/2024 Sinus tachycardia 12/07/2024 Type 2 diabetes mellitus wit hout complication, without long-term current use of insulin 12/07/2024 Assessment & Plan (03/12/2025 8:48 PM EDT): Current A1c: 6.0; continue Bronwyn BMP: Lab Results Component Value Date CREATININE 1.16 12/07/2024 EGFR >60 12/07/2024 K 4.8 12/07/2024 MICROALBUR 46.0 12/07/2024 Foot Exam: Complete at follow up Eye Exam: seen at [facility] Lipid panel: Total chol 254, HDL 46 ASCVD:31.7% Statin: Yes ASA: Yes GRADY/ARB: Yes Encouraged regular aerobic exercise for improved glycemic control Encouraged daily foot checks Encouraged lean protein snacks and to avoid foods high in sugar and simple carbohydrates Treatment Goals: A1c goal: <7% FBG goal: <130 2 hour post prandial goal: <180 Assessment & Plan (12/07/2024 1:04 PM EDT): Current A1c: 6.5; continue Joslyn and Jaida BMP: Microalbumin: Foot Exam: Complete at follow up Eye Exam: Discuss at follow up Lipid panel: ASCVD: Calculate pending updated labs Statin: Yes ASA: Yes GRADY/ARB: Yes Encouraged regular aerobic exercise for improved glycemic control Encouraged daily foot checks Encouraged lean protein snacks and to avoid foods high in sugar and simple carbohydrates Treatment Goals: A1c goal: <7% FBG goal: <130 2 hour post prandial goal: <180 Screening for prostate cancer 12/07/2024 Assessment & Plan (12/07/2024 1:04 PM EDT): Normal PSA and asymptomatic Resolved Problems Problem Noted Date Diagnosed Date Resolved Date History of viral infection 12/07/2024 0 12/07/2024 Encounters Date Type Department Care Team Description 04/29/2025 Telephone [facility] MEDICINE [address] [place] [phone] Eboni Posey MD Telephone call 04/19/2025 1:00 PM EDT Office Visit [facility] OPTOMETRY [address] [place] [address] Rebekah Reyes, OD Type 2 diabetes mellitus with both eyes affected by severe nonproliferative retinopathy and macular edema, without long-term current use of insulin ([facility]) (Primary Dx); Combined forms of age-related cataract of both eyes; Presbyopia 04/19/2025 Travel 03/27/2025 Telephone [facility] OPTOMETRY [address] [place] [address] Rebekah Reyes, OD 03/08/2025 11:15 AM EDT Office Visit [facility] MEDICINE [address] [place] [phone] Eboni Posey MD Chronic right-sided HF (heart failure) (CMS/HCC) (Primary Dx); Type 2 diabetes mellitus without complication, without long-term current use of insulin ([facility]); Primary hypertension 03/08/2025 Travel 03/06/2025 Telephone [facility] MEDICINE [address] [place] [address] Eboni Posey MD 02/27/2025 Patient Outreach [address] [phone] Eboni Posey MD Pre-visit Planning ([facility] screening completed on 12/07/2024) from Last 3 Months Immunizations Immunization Administration [...] Types Packs/Day Years Used Date Smoking Tobacco: Some Days Cigarettes Smokeless Tobacco: Never Tobacco Cessation:Ready to Q uit: Not Asked; Counseling Given: Not Answered Depression Answer Date Recorded Patient Health Questionnaire-9 Score 0 03/08/2025 Patient Health Questionnaire-9 Score 0 03/08/2025 Last PHQ-9: Questionnaire Data Not on file 0 03/08/2025 Housing Stability Answer Date Recorded What is [...] Answer Date Recorded Patient Health Questionnaire-2 Score 0 03/08/2025 Internet Access Answer Date Recorded Internet Access [...] Sign Reading Time Taken Comments Blood Pressure 132/84 03/08/2025 11:22 AM EDT Pulse 102 03/08/2025 10:55 AM EDT Temperature 37.1 C (98.8 F) 03/08/2025 10:55 AM EDT Respiratory Rate 20 03/08/2025 10:55 AM EDT Oxygen Saturation 97% 12/07/2024 8:51 AM EDT Inhaled Oxygen Concentration - - Weight 79.9 kg (176 lb 3.2 oz) 03/08/2025 10:55 AM EDT Height 180.3 cm (5' 11 ) 03/08/2025 10:55 AM EDT Body Mass Index 24.57 03/08/2025 10:55 AM EDT Plan of Treatment Upcoming Encounters Date Type Department Care Team (Late st Contact Info) Description 10/17/2025 10:30 AM EDT Office Visit [facility] OPTOMETRY [address] [place] [address] Rebekah Reyes, OD [address] [place] [address] Health Maintenance Due Date Last Done Comments CT Colonography 1961 Colonoscopy 1961 Colorectal Cancer Screening 1961 FIT DNA/Cologuard 1961 FIT 1961 FOBT 1961 Sigmoidoscopy 1961 Disability Screening 1961 Diabetes: Foot Exam 1971 DTaP/Tdap/Td Vaccines (2 - Td or Tdap) 10/27/2021 10/28/2011 COVID-19 Vaccine ( season) 2025 05/08/2023, 04/09/2022, 11/02/2021, Additional history exists Influenza Vaccine (#1) 2025 , 05/08/2023, 04/20/2021, Additional history exists Diabetes: Hemoglobin A1C 09/08/2025 03/08/2025, 0512/2024 Alcohol/Substance Use Screening 12/07/2025 12/07/2024 Diabetes: Urine Protein Screening 12/07/2025 12/07/2024 Lipid Panel 12/07/2025 12/07/2024 SDOH Screening 12/07/2025 12/07/2024 Depression Screening 03/08/2026 03/08/2025, 03/08/20 Eye Exam 04/19/2026 04/19/2025, 03/26, 04/19/2025, Additional history exists Tobacco Screening 04/19/2026 04/19/2025 Zoster Vaccines Completed 01/01/2022, 11/03/2021 Pneumococcal Vaccine: 50+ Years Completed 05/08/2023, 07/08/2017 RSV Patients and Patients Aged 60 years or older Completed 08/28/2024 HIV Screening Completed 12/07/2024 Hepatitis C Screening Completed 12/07/2024, 025 HIB Vaccines Aged Out No longer eligi [...] on patient's age to complete this topic Procedures Procedure Name Priority Date/Time Associated Diagnosis Comments POCT GLYCATED HEMOGLOBIN, TOTAL Routine 03/08/2025 10:57 AM EDT Type 2 diabetes mellitus without complication, without long-term current use of insulin ([facility]/HCC) POCT GLUCOSE Routine 03/08/2025 10:56 AM EDT Type 2 diabetes mellitus without complication, without long-term current use of insulin (CMS/HCC) HEPATITIS C AB W/REFL TO HCV RNA, QN, PCR Routine 12/07/2024 10:23 AM EDT Overweight HIV 1/2 ANTIGEN/ANTIBODY, FOURTH GENERATION W/RFL Routine 12/07/2024 10:23 AM EDT Overweight ALBUMIN, RANDOM URINE W/CREATININE Routine 12/07/2024 10:23 AM EDT Type 2 diabetes mellitus without complication, without long-term current use of insulin (CMS/HCC) LIPID PANEL, STANDARD Routine 12/07/2024 10:23 AM EDT Type 2 diabetes mellitus without complication, without long-term current use of insulin (CMS/HCC) from Last 3 Months or Most Recently Relevant to Health Maintenance Results * (ABNORMAL) POCT HGB A1C (03/08/2025 10:57 AM EDT) Hemoglobin A1C 6.0(A) 4.0 - 5.7 % QC Media Lot # [id number] Lot# Expiration Date 47, Blood 03/08/2025 10:5 7 AM EDT Eboni Posey MD POINT OF CARE TEST ENTER/EDIT ORDERABLES Final Result * POCT Glucose (03/08/2025 10:56 AM EDT) Glucose Blood, POC 174 60 - 200 mg/dL QC Media Lot # [id number] Lot# Expiration Date [id number] Blood Capillary blood specimen / Unknown 03/08/2025 10:56 AM EDT Eboni Posey MD POINT OF CARE TEST ENTER/EDIT ORDERABLES Final Result * (ABNORMAL) Albumin, Random Urine W/Creatinine (12/07/2024 10:23 AM EDT) Creatinine, Urine 155.47 mg/dL [facility] Microalbumin Urine 46.0 mg/L H [facility] Microalbum Creatinine Ratio Ur 29.5(H) <30 ug/mg cr [facility] Comment:Albumin/Creatinine R atio Reference Ranges: Normal: < 30 ug/mg creatinine Microalbuminuria: 30 - 300 ug/mg creatinineClinical Albuminuria: > 300 ug/mg creatinine Urine (Urine, Random) 12/07/2024 10:23 AM EDT 12/07/2024 10:57 AM EDT Eboni Posey MD LAB URINE ORDERABLES Final Res ult Performing Organization Address [facility] Co de Phone Number [facility] [address] [place] [phone] * (ABNORMAL) Hepatitis C Antibody with Reflex to HCV, RNA, Quantitative, Real- Time PCR (12/07/2024 10:23 AM EDT) Hepatitis C Antibody Reactive( A) Nonreactive [facility] Comment:Presumptive evidence of antibodies to HCV. Blood Venous blood specimen / Unknown 12/07/2024 10:23 AM EDT 12/07/2024 10:57 AM EDT Eboni Posey MD LAB BLOOD ORDERABLES Final Res ult Performing Organization Address [facility] Co de Phone Number [facility] [address] [place] [phone] * HIV-1/2 Antigen and Antibodies, Fourth Generation, with Reflexes (12/07/2024 10:23 AM EDT) HIV AB/AG Nonreactive Nonreactive [facility] Comment:HIV-1 p24 Ag and/or HIV-1/HIV-2 Ab not detected.A test result that is nonreactive does not exclude thepossibility of exposure to or infection with HIV-1 and/orHIV-2. Nonreactive results in this assay for individualswith prior exposure to HIV-1 and/or HIV-2 may be due toantigen and antibody levels that are below the limit ofdetection of this assay.The NexSteppe HIV Ag/Ab Combo assay result andsupplemental assay results should be interpreted inconjunction with the patient's clinical presentation,history and other laboratory results. If the results areinconsistent with clinical evidence, additional testing issuggested to confirm the result. Blood Venous blood specimen / Unknown 12/07/2024 10:23 AM EDT 12/07/2024 10:57 AM EDT Eboni Posey MD LAB BLOOD ORDERABLES Final Res ult Performing Organization Address [facility] Co de Phone Number [facility] [address] [place] [phone] * (ABNORMAL) Lipid Panel, Standard (12/07/2024 10:23 AM EDT) Triglycerides 167(H) <150 mg/dL [facility] Comment:Desirable Triglyceri de: less than 150 mg/dLBorderline High Triglyceride 150-199 mg/dLHigh Triglyceride: 200-499 mg/dLVery High Triglyceride: greater than or equal to 5OO mg/dL Cholesterol 254(H) <200 mg/dL [facility] Comment:Desirable Cholestero l: less than 200 mg/dLBorderline High Cholesterol: 200-239 mg/dLHigh Cholesterol: greater than 239 mg/dL LDL Cholesterol Calculated 175(H) <100 mg/dL [facility] Comment:Desirable LDL: less than 100 mg/dLNear Optimal/Above Optimal LDL: 110- 129 mg/dLBorderline High LDL: 130-159 mg/dLHigh LDL: 160-189 mg/dLVery High LDL: greater than or equal to 190 mg/dL HDL Cholesterol 46 >40 mg/dL [facility] Comment:Desirable HDL: great er than 40 mg/dL Note: This HDL assay may give artificially low results in patients with liver disease. Blood Venous blood specimen / Unknown 12/07/2024 10:23 AM EDT 12/07/2024 10:57 AM EDT Eboni Posey MD LAB BLOOD ORDERABLES Final Res ult Performing Organization Address [facility] Co de Phone Number [facility] [address] [place] [phone] from Last 3 Months or Most Recently Relevant to Health Maintenance Insurance [employer] < [address] [place] [id number] Care Teams Physical Therapy Supervisor Relationship Specialty Start Date End Date Eboni Posey MD [address] [place] [phone] PCP - General Family Medicine 12/07/24
--- OUTSIDE RECORDS SUMMARY | 2025-05-07 10:41 | XMS_ITS | Patient Health Record ---
Author Organization [employer] [facility] Address [address] [place] [phone] Care Team Providers Care Principal Web Developer Name Role Phone Baudilio Brown M.D. Primary Care Provider Un available Jed Lubin Unavailable [phone] Allergies Allergen (clinical drug ingredient) Drug/Non Drug Allergy documented on EMR Reaction Allergy Type Onset Date Status Tuberculin purified protein derivative (FN) TB test (uncoded) Unknown Allergy Active Reason For Referral No Information Medications Medication SIG (Take, Route, Fr equency, Duration) Notes Start Date End Date Status SEROquel Active Levitra Active MoviPrep 100 GM as directed Orally 08/10/201107/2024 Active Remeron Active PROzac 07/25/2024 07/25/2024 Active Problems Problem Type SNOMED Code ICD Code Onset Dates Problem Status W/U Status Risk Notes Problem Gastroduodenitis (948635635) Unspecified gastritis and gastroduodenitis without mention of hemorrhage (535.50) Active confirmed Problem Screening for malignant neoplasm of colon (484025230) Special screening for malignant neoplasms, colon (V76.51) Active confirmed Plan Of Treatment Future Test Test Name Order Date COLONOSCOPY 08/10/2011 Insurance Providers Payer Name Payer Address Payer Phone Subscriber Number Group Number Insured Name Patient Relationship to Insured Coverage Start Date Coverage End Date [place] OF [place] [address] [place] [id number] NICK CARLISLE Self - patient is the insured MEDICAID OF [facility] [address] [place] [address] [id number] NICK CARLISLE Self - patient is the insured Medical (General) History Medical History History ICD Code gastritis as above kidney stones requiring a cystoscopy in 2011 depression and anxiety hyperlipidemia denies MT, diabetes, stroke nor asthma Surgical History Surgery Date(Month/Year) shoulder surgery hernia surgery circumcision
== END 2025-05-07 10:12 | disposition home or self-care (01) ==
LOC: HO.HVS 09:34
PROVIDERS: PCP Internal Medicine; Visit Provider Surgery Vascular Surgery
DX: M79.601 Pain in right arm (principal); M79.602 Pain in left arm
CPT/HCPCS: 99204

== ENCOUNTER → 2025-05-07 09:34 | Outpatient (BNVA) | payer OTHER, SELFPAY | PROVIDERS: PCP Internal Medicine; Visit Provider Surgery Vascular Surgery | DX: M79.601 Pain in right arm (principal); M79.602 Pain in left arm; Z95.0 Presence of cardiac pacemaker | CPT/HCPCS: 99202 ==

== ENCOUNTER 2025-06-18 10:53 | Outpatient (AMB) | payer OTHER, SELFPAY ==
--- NOTE | 2025-06-18 11:02 | MHC.OFFVIS ---
Vital Signs 06/18/25 11:08 Height 5 ft 11 in Weight 175 lb BMI 24.4 BP 142/73 H Blood Pressure Location Lt brachial Position Sitting Pulse 100 Intake Visit Reasons: Colonoscopy Intake Note: Patient new consult for pre Colonoscopy screening. Patient cc: abdominal bloating with pain, acid reflux with sensation of vomit and constipation. Interpersonal Communications Professor Required: Yes Interpersonal Communications Professor Name: Clint Cavanaugh [id number] Accompanied by: Self / Same As Patient Allergies From Tuberculin PPD Meagan Test Allergy (Unknown, Uncoded 12/11/24 09:31) RASH, SWELLING OF ARM Medication List - Last Reconciled 06/18/25 by Vielka Kumar CNP aspirin 81 mg PO DAILY atorvastatin 80 mg PO DAILY carvedilol 25 mg PO BID empagliflozin (Jardiance) 25 mg PO QAM sacubitril-valsartan 97-103 mg (Entresto) 1 tab PO BID semaglutide (Rybelsus) 14 mg PO QAM spironolactone 25 mg PO DAILY HPI HPI Colonoscopy: Details: Patient is a 65-year-old male with PMH of hypertension, hyperlipidemia, heart failure, diabetes. Referred by PCP for pre colonoscopy screening. This will be [facility]'s second colonoscopy. Reports his first was through [facility], he does not recall the results. He reports a one-year history of episodic epigastric pain associated with vomiting sensation, acid reflux, and constipation. Symptoms began after relocating from [place] to [place] last year. Abdominal pain is described as moderate and occurs after 2?3 days without bowel movement, with relief noted following defecation. Bowel habits alternate between hard stool and diarrhea, with incomplete evacuation reported. No blood in stool. Patient does not use any interventions for constipation. Patient also has a history of hernia. No upper GI bleeding, weight loss, or acute distress described. Patient denies: fever/chills, unintentional wt loss or melena/hematochezia. Social hx: - denies ETOH use -denies recreational drug use -former smoker, cessation 4 months ago - family hx as below -denies personal hx of CA -tolerated anesthesia in the past without difficulty. PFSH Medical History (Updated 06/18/25 @ 12:14 by Vielka Kumar CNP) Change in stool Hyperlipemia Hypertension Heart failure Diabetes Constipation Nausea & vomiting Colon cancer screening Surgical History (Updated 06/18/25 @ 11:06 by Layla Abbott) Hx of hernia repair Social History (Updated 06/18/25 @ 11:05 by Layla Abbott) Household Members: Family Alcohol intake: former Patient Tobacco Use Status: Former Tobacco user Review of Systems Const Reports as per HPI ENT Reports as per HPI Card Reports as per HPI Resp Reports as per HPI GI Reports as per HPI Reports as per HPI Physical Exam Vital Signs: Last Vital Signs Pulse 100 06/18/25 11:08 BP 142/73 H 06/18/25 11:08 BMI result Body Mass Index 24.4 Const General: healthy appearing, no acute distress and well developed Nutritional Appearance: average body habitus Orientation/consciousness: patient oriented x3 HEENT Head: Yes normal to inspection, Yes normocephalic and Yes atraumatic Face and sinus: Yes normal facial exam Eyes General: appearance normal, both eyes and all related structures Neck Neck: Yes normal visual inspection Resp Effort & Inspection: normal respiratory effort, able to speak in complete sentences, no tracheal deviation and symmetric chest movement Cardio Jugular venous distension: no JVD GI Inspection: Yes normal to inspection, No distended and Yes obesity Palpation (GI): Soft to palpation, not firm, nontender and No hepatosplenomegaly present Auscultation: normal bowel sounds Neuro General: patient oriented x3 Gait exam (Neuro): Normal gait present Psych Appearance: grossly normal Mental Status: mental status grossly normal Speech and movement: Normal speech and movement present Affect: normal affect Attitude: cooperative Thought process: Normal thought process present Thought content: Normal thought content present Insight: Good insight present (Psych) Judgement: Good judgement present (Psych) Results Reviewed Results Reviewed: Date of Service: 11/01/24 Procedure(s): CT abdomen pelvis wo IV con Accession Number(s): [id number] cc: Baudilio Brown MD; Imelda Galicia MD~ Report Number: [id number]: Total DLP = 528.00 mGy-cm EXAMINATION: CT ABDOMEN AND PELVIS WITHOUT CONTRAST CLINICAL INFORMATION: Nausea and vomiting. COMPARISON: June 22, 2011 is not available on PACS. TECHNIQUE: Multidetector volumetric imaging was performed from the superior aspect of the liver through the pubic symphysis. Sagittal and coronal reformatted images were obtained on the technologist's workstation. This CT examination was performed using dose optimization techniques as appropriate, variously including the following: *Automated exposure control *Adjustment of mA and/or kV according to patient size (this includes techniques or standardized protocols for targeted exams where dose is matched to indication/reason for exam; i.e. extremities or head) *Use of iterative reconstruction technique. DLP: 528 mGy centimeter. FINDINGS: Inadequate evaluation of the intra-abdominal organs and vascular structures due to lack of IV contrast. LUNG BASES: No acute airspace disease. Electrode leads in the right heart chambers and coronary venous sinus. LIVER, GALLBLADDER, AND BILIARY TREE: Liver measures 15 cm. No intrahepatic biliary ductal dilatation. No pericholecystic fluid collection or gallbladder wall thickening. No extrahepatic biliary ductal dilatation. PANCREAS: No peripancreatic fluid collection. No main pancreatic ductal dilatation. SPLEEN: 8 cm. ADRENAL GLANDS: No nodular lesions. KIDNEYS AND URETERS: No gross hydronephrosis or nephrolithiasis. Vascular calcifications in the left renal hilum. BLADDER: Fluid-filled. GASTROINTESTINAL TRACT: No intestinal obstruction pattern. Appendix is normal. No gross wall thickening. No pneumatosis intestinalis. Stool within the large intestine. No pneumoperitoneum. No ascites. ABDOMINAL WALL: Diastases abdominal rectus muscles. There is an irregular soft tissue fullness in the left inguinal canal probably related to prior surgical procedure.. LYMPH NODES: Nonspecific mildly prominent in the mesenteric and retroperitoneum. VASCULAR: Mixed plaques throughout the abdominal aorta wall and iliac arteries origin of the mesenteric arteries and main renal arteries. No gross aneurysm in the abdominal aorta.. Calcified plaques in the thoracic aorta. PELVIC VISCERA: Inadequate evaluation. No gross enlargement. OSSEOUS STRUCTURES: Syndesmophyte formation throughout the thoracic spine and upper lumbar spine. Facet joint hypertrophy at L4-5 and L5-S1. No gross malalignment. No acute cortical disruption. Syndesmophyte formation with the incomplete ankylosis at the sacroiliac joints. CT/CT abdomen pelvis wo IV con IMPRESSION: No intestinal obstruction pattern. No pneumoperitoneum. No ascites. Atherosclerosis disease. Multilevel thoracolumbar spondylosis. Fleischner guidelines were followed. Electronically signed by: David Benjamin MD 11/01/2024 03:07 PM Assessment & Plan Assessment & Plan (1) Change in stool: Code(s): R19.5 - Other fecal abnormalities Category: Medical Plan: Symptom chronology linked to change in living situation, episodic symptoms alternating between constipation and diarrhea, and incomplete evacuation. Unremarkable CT October 2024. Additional Testing: -Proceed with scheduled colonoscopy with concurrent EGD for structural evaluation -fasting CMP , CBC, TSH, serology screening -stool testing to rule out inflammatory/infectious Medication Management: -Start osmotic laxative (miralax) - consider antacid therapy if upper GI symptoms progress and/or depending on endoscopy findings Lifestyle Recommendations: Encourage regular hydration, fiber intake if not contraindicated, and review diet for potential triggers post-colonoscopy. Follow-Up: Reassess GI symptoms after colonoscopy and upon results review; timeframe guided by procedural scheduling and clinical finding (2) Nausea & vomiting: Code(s): R11.2 - Nausea with vomiting, unspecified Category: Medical Qualifiers: Vomiting type: unspecified Qualified Code(s): R11.2 - Nausea with vomiting, unspecified Plan: as above (3) Colon cancer screening: Code(s): Z12.11 - Encounter for screening for malignant neoplasm of colon Category: Medical Plan: Age-appropriate and indicated by GI symptoms and prior incomplete records. We will attempt to obtain results from prior colonoscopy. Additional Testing: Colonoscopy scheduled for CRC screening. Medication Management: We will review prep at follow-up. Lifestyle Recommendations: As above; reinforce importance of CRC screening. Follow-Up: Review colonoscopy results and update management accordingly. Plan Follow-up 2 months or sooner as needed Time: I spent a total of 30 minutes on the date of encounter which includes: Preparing to see the patient (reviewed previous documentation, test results and medical history) Performing a medically appropriate exam and/or evaluation Ordering medications, tests, and procedures Documenting clinical information in the health record Orders: Orders Complete Blood Count Auto Diff Today R11.2 - Nausea with vomiting, unspecified TSH reflex Free T4 Today R19.5 - Other fecal abnormalities GI Panel Today R19.7 - Diarrhea, unspecified CDiff Gene PCR Today R19.5 - Other fecal abnormalities, R19.7 - Diarrhea, unspecified Transglutaminase IgA Today R19.5 - Other fecal abnormalities Comprehensive [place]. Panel Fast Today R11.2 - Nausea with vomiting, unspecified Calprotectin, Fecal Today R19.5 - Other fecal abnormalities, R19.7 - Diarrhea, unspecified Referrals GI Procedure Notification K21.9 - Gastro-esophageal reflux disease without esophagitis, R11.2 - Nausea with vomiting, unspecified, Z12.11 - Encounter for screening for malignant neoplasm of colon Medications: New polyethylene glycol 3350 (Miralax) Take 17G (one cap full) daily with 8oz of water 17 grams PO DAILY 510 grams 2RF constipation 30 days Coding Level of Care Code New Pt New Pt Level 3 (26766) Patient Type New Diagnoses Change in stool R19.5 Nausea and vomiting, unspecified vomiting type R11.2 Vomiting type: unspecified Colon cancer screening Z12.11
[2025-06-18 11:08] VITALS: BP 142/73; PULSE 100; BMI 24.4
--- OUTSIDE RECORDS SUMMARY | 2025-06-18 14:14 | XMS_ITS | Patient Health Record ---
Author Organization [facility] Address [address] [place] [address] Care Team Providers Care Partner Name Role Phone Baudilio Brown M.D. Primary Care Provider Un available Jed Lubin Unavailable [phone] Allergies Allergen (clinical drug ingredient) Drug/Non Drug Allergy documented on EMR Reaction Allergy Type Onset Date Status Tuberculin purified protein derivative (FN) TB test (uncoded) Unknown Allergy Active Reason For Referral No Information Medications Medication SIG (Take, Route, Frequency, Duration) Notes Start Date End Date Status SEROquel Active Levitra Active MoviPrep 100 GM Solution Reconstituted as directed Orally 08/10/2011 Active Remeron Active PROzac Active Social History Social History Additional Details Category Social Info Options Details Miscellaneous: Marital status: single Section Notes: He smokes and does not use a ny significant amounts of alcohol Problems Problem Type SNOMED Code ICD Code Onset Dates Problem Status W/U Status Risk Notes Problem Gastroduodenitis (468609567) Unspecified gastritis and gastroduodenitis without mention of hemorrhage (535.50) Active confirmed Problem Screening for malignant neoplasm of colon (007862571) Special screening for malignant neoplasms, colon (V76.51) Active confirmed Plan Of Treatment Future Test Test Name Order Date COLONOSCOPY 08/10/2011 Insurance Providers Payer Name Payer Address Payer Phone Subscriber Number Group Number Insured Name Patient Relationship to Insured Coverage Start Date Coverage End Date MED[place] OF [place] [address] [place] [id number] NICK CARLISLE Self - patient is the insured MEDICAID OF [facility] [address] [place] [address] [id number] NICK CARLISLE Self - patient is the insured Medical (General) History Medical History History ICD Code gastritis as above kidney stones requiring a cystoscopy in 2010 depression and anxiety hyperlipidemia denies AK, diabetes, stroke nor asthma Surgical History Surgery Date(Month/Year) shoulder surgery hernia surgery circumcision
--- OUTSIDE RECORDS SUMMARY | 2025-06-18 14:14 | XMS_ITS | Encounter Summary ---
Author Organization [employer] Address [address] [facility] [address] [place] [address] Care Team Providers Care Garment Mender Name Role Phone Eboni Posey MD Primary Care Provider [phone] Reason for Visit * Reason Onset Date Comments pre op 06/11/2025 Encounter Details Date Type Department Care Team ([facility] st Contact Info) Description 06/11/2025 Telephone [facility] MEDICINE [address] [place], [place] [phone] Eboni Posey MD [address] [place], [place] [phone] pre op Social History Tobacco Use Types Packs/Day Years Used Date Smoking Tobacco: Some Days Cigarettes Smokeless Tobacco: Never Depression Answer Date Recorded [...] t he electric, gas, oil or water [employer] threatened to shut off services in your [...] encounter Miscellaneous Notes * Telephone Encounter - Navarro Davis - 06/17/2025 9:56 AM EST 2x attempt to out reach to pt . Left Detailed VM * Telephone Encounter - Vega Zafar - 06/11/2025 1:15 PM EST Outgoing call to schedule Pre-op appointment no answer lvm * Telephone Encounter - Dang Amezquita - 06/11/2025 11:53 AM EST Date of Surgery: 08/05 Surgical procedure being done: cataract right eye Type of anesthesia: local anesthesia Lab needed: No EKG: No Surgeon's name:Dr Romero Facility name: [facility] Surgeon's office number: [phone] Surgeon's office fax number: [phone] Contact name (person you spoke with): Lela Last office note from surgeon requested: No Send Message to Navarro Davis documented in this encounter Plan of Treatment Upcoming Encounters Date Type Department Care Team ([facility] st Contact Info) Description 10/17/2025 10:30 AM EDT Office Visit [facility] OPTOMETRY [address] [place] [address] Rebekah Reyes, OD [address] [place] [address] documented as of this encounter Goals Goal Patient Goal Type Associated Problems Recent Progress Patient-Stated? Author Help patients manage their type 2 diabetes Care Plan Help patients manage their type 2 diabetes No Dang Mott Weekly blood pressure task Care Plan Weekly blood pressure task No Dang Mott Help patients manage their type 2 diabetes Care Plan Help patients manage their type 2 diabetes No Dang Mott Patient has chronic kidney disease Care Plan Patient has chronic kidney disease No Dang Mott Weekly blood pressure task Care Plan Weekly blood pressure task No Dang Mott Patient has chronic kidney disease Care Plan Patient has chronic kidney disease No Dang Mott documented as of this encounter Visit Diagnoses Not on filedocumented in this encounter Additional Health Concerns Active Problems Noted Date Diagnosed Date Help patients manage their type 2 diabetes 06/11 Weekly blood pressure task 06/11/2025 Help patients manage their type 2 diabetes 06/11 Patient has chronic kidney disease 06/11/2025 Weekly blood pressure task 06/11/2025 Patient has chronic kidney disease 06/11/2025 Assessment Noted Time PHQ-9 Depression Total Score: 0 03/08/20 10:57 AM EDT documented as of this encounter Care Teams Garment Mender Relationship Specialty Start Date End Date Eboni Posey MD [address] [place] [phone] PCP - General Family Medicine 12/07/24 documented as of this encounter
--- OUTSIDE RECORDS SUMMARY | 2025-06-18 14:14 | XMS_ITS | Clinical Summary ---
Author Organization [employer] Address [address] [facility] [address] [place] [address] Care Team Providers Care Photogrammetric Compilation Specialist Name Role Phone Eboni Posey MD Primary Care Provider [phone] Allergies Active Allergy Reactions Criticality Noted Date [...] (12/07/2024 1:04 PM EDT): Last EF in [facility] notes 26% (06/2023) that patient brings, but he also says he had recent Echo in [facility] system Will attempt to obtain [facility] records Also refer to cardiology for ongoing care and monitoring Constipation 12/07/2024 Diarrhea 12/07/2024 History of kidney stones 12/07/2024 Hx of smoking 12/07/2024 Hypertension 12/07/2024 Assessment & Plan (12/07/2024 1:02 PM EDT): At goal currently with Entresto Left bundle branch block (LBBB) 12/07/2024 Nonischemic cardiomyopathy ([facility]/HCC) 12/07/2024 Paranoid delusion ([facility]) 12/07/2024 Sinus tachycardia 12/07/2024 Type 2 diabetes mellitus wit hout complication, without long-term current use of insulin 12/07/2024 Assessment & Plan (03/12/2025 8:48 PM EDT): Current A1c: 6.0; continue [place] BMP: Lab Results Component Value Date CREATININE 1.16 12/07/2024 EGFR >60 12/07/2024 K 4.8 12/07/2024 MICROALBUR 46.0 12/07/2024 Foot Exam: Complete at follow up Eye Exam: seen at [facility] Lipid panel: Total chol 254, HDL 46 [...] Encounters Date Type Department Care Team Description 06/11/2025 Telephone [facility] MEDICINE [address] [place], [place] [phone] Eboni Posey MD pre op 04/29/2025 Telephone [facility] MEDICINE [address] [place] [address] Eboni Posey MD Telephone call 04/19/2025 1:00 PM EDT Office Visit [facility] OPTOMETRY [address] [place], [place] [phone] Rebekah Reyes, OD Type 2 diabetes mellitus with both eyes affected by severe nonproliferative retinopathy and macular edema, without long-term current use of insulin ([facility]) (Primary Dx); Combined forms of age-related cataract of both eyes; Presbyopia 04/19/2025 Travel 03/27/2025 Telephone [facility] OPTOMETRY [address] [place], [place] [phone] Rebekah Reyes, OD from Last 3 Months Immunizations Immunization Administration [...] Description 10/17/2025 10:30 AM EDT Office Visit [facility] OPTOMETRY [address] [place] [address] Rebekah Reyes, OD [address] [place] [address] Health Maintenance Due Date Last Done Comments [...] history exists Diabetes: Hemoglobin A1C 09/08/2025 03/08/2025, 11/22 Alcohol/Substance Use Screening 12/07/2025 12/07/2024 Diabetes: Urine Protein Screening 12/07/2025 12/07/2024 Lipid Panel 12/07/2025 12/07/2024 SDOH Screening 12/07/2025 12/07/2024 Depression Screening 03/08/2026 03/08/2025, 03/08/20 25 Eye Exam 04/19/2026 04/19/2025, 03/26, 04/19/2025, Additional [...] on patient's age to complete this topic Goals Goal Patient Goal Type Associated Problems [...] has chronic kidney disease No Dang Mott Procedures Procedure Name Priority Date/Time Associated Diagnosis [...] complication, without long-term current use of insulin ([facility]) LIPID PANEL, STANDARD Routine 12/07/2024 10:23 AM EDT Type 2 diabetes mellitus without complication, without long-term current use of insulin ([facility]) from Last 3 Months or Most Recently Relevant to Health Maintenance Results * (ABNORMAL) POCT HGB A1C (03/08/2025 10:57 AM EDT) Hemoglobin A1C 6.0(A) 4.0 - 5.7 % QC Media Lot # [id number] Lot# Expiration Date 06 Blood 03/08/2025 10:5 7 AM EDT us Eboni Posey MD POINT OF CARE TEST ENTER/EDIT ORDERABLES Final Result * (ABNORMAL) Albumin, Random Urine W/Creatinine (12/07/2024 10:23 AM EDT) Creatinine, Urine 155.47 mg/dL [facility] Microalbumin Urine 46.0 mg/L [facility] Microalbum Creatinine Ratio Ur 29.5(H) <30 ug/mg cr [facility] Comment:Albumin/Creatinine R atio Reference Ranges: Normal: < 30 ug/mg creatinine Microalbuminuria: 30 - 300 ug/mg creatinineClinical Albuminuria: > 300 ug/mg creatinine Urine (Urine, Random) 12/07/2024 10:23 AM EDT 12/07/2024 10:57 AM EDT us Eboni Posey MD LAB URINE ORDERABLES Final Res ult [facility] [address] [place] [phone] * (ABNORMAL) Hepatitis C Antibody with Reflex to HCV, RNA, Quantitative, Real- Time PCR (12/07/2024 10:23 AM EDT) Hepatitis C Antibody Reactive( A) Nonreactive [facility] Comment:Presumptive evidence of antibodies to HCV. Blood Venous blood specimen / Unknown 12/07/2024 10:23 AM EDT 12/07/2024 10:57 AM EDT us Eboni Posey MD LAB BLOOD ORDERABLES Final Res ult Performing Organization Address [facility]/State/ZIP Co de Phone Number [facility] [address] [place] [address] [phone] * HIV-1/2 Antigen and Antibodies, Fourth Generation, with Reflexes (12/07/2024 10:23 AM EDT) HIV AB/AG Nonreactive Nonreactive [facility] Comment:HIV-1 p24 Ag and/or HIV-1/HIV-2 Ab not detected.A test result that is nonreactive does not exclude thepossibility of exposure to or infection with HIV-1 and/orHIV-2. Nonreactive results in this assay for individualswith prior exposure to HIV-1 and/or HIV-2 may be due toantigen and antibody levels that are below the limit ofdetection of this assay.[employer] HIV Ag/Ab Combo assay result andsupplemental assay results should be interpreted inconjunction with the patient's clinical presentation,history and other laboratory results. If the results areinconsistent with clinical evidence, additional testing issuggested to confirm the result. Blood Venous blood specimen / Unknown 12/07/2024 10:23 AM EDT 12/07/2024 10:57 AM EDT us Eboni Posey MD LAB BLOOD ORDERABLES Final Res ult [facility] [address] [place] [phone] * (ABNORMAL) Lipid Panel, Standard (12/07/2024 10:23 AM EDT) Triglycerides 167(H) <150 mg/dL [facility] Comment:Desirable Triglyceri de: less than 150 mg/dLBorderline High Triglyceride 150-199 mg/dLHigh Triglyceride: 200-499 mg/dLVery High Triglyceride: greater than or equal to 5OO mg/dL Cholesterol 254(H) <200 mg/dL [facility] Comment:Desirable Cholestero l: less than 200 mg/dLBorderline High Cholesterol: 200-239 mg/dLHigh Cholesterol: greater than 239 mg/dL LDL Cholesterol Calculated 175(H) <100 mg/dL [facility] Comment:Desirable LDL: less than 100 mg/dLNear Optimal/Above Optimal LDL: 110- 129 mg/dLBorderline High LDL: 130-159 mg/dLHigh LDL: 160-189 mg/dLVery High LDL: greater than or equal to 190 mg/dL HDL Cholesterol 46 >40 mg/dL [facility] Comment:Desirable HDL: great er than 40 mg/dL Note: This HDL assay may give artificially low results in patients with liver disease. Blood Venous blood specimen / Unknown 12/07/2024 10:23 AM EDT 12/07/2024 10:57 AM EDT us Eboni Posey MD LAB BLOOD ORDERABLES Final Res ult [facility] [address] [place] [phone] from Last 3 Months or Most Recently Relevant to Health Maintenance Additional Health Concerns Active Problems Noted Date Diagnosed Date Help patients manage their type 2 diabetes 06/11 Weekly blood pressure task 06/11/2025 Help patients manage their type 2 diabetes 06/11 Patient has chronic kidney disease 06/11/2025 Weekly blood pressure task 06/11/2025 Patient has chronic kidney disease 06/11/2025 Insurance [employer] < [address] [place] [id number] Care Teams Photogrammetric Compilation Specialist Relationship Specialty Start Date End Date Eboni Posey MD [address] [place] [phone] PCP - General Family Medicine 12/07/24
== END 2025-06-18 12:02 | disposition home or self-care (01) ==
LOC: HO.HGI 10:53
PROVIDERS: PCP Internal Medicine; Visit Provider Nurse Practitioner Family
DX: R19.4 Change in bowel habit (principal); R11.2 Nausea with vomiting, unspecified; R10.9 Unspecified abdominal pain; R14.0 Abdominal distension (gaseous)
CPT/HCPCS: 99203

== ENCOUNTER → 2025-06-18 10:53 | Outpatient (BNVA) | payer OTHER, SELFPAY | PROVIDERS: PCP Internal Medicine; Visit Provider Nurse Practitioner Family | DX: Z01.818 Encounter for other preprocedural examination (principal); R11.2 Nausea with vomiting, unspecified; R19.5 Other fecal abnormalities; R19.7 Diarrhea, unspecified | CPT/HCPCS: 99202 ==